=== PATIENT | female | born 1975 | race American Indian/Alaskan Native ===

== ENCOUNTER 2020-09-04 10:00 | Outpatient (CLI) | payer MEDICAID | END 2020-09-04 10:01 | disposition home or self-care (01) | LOC: SLR 10:00 | PROVIDERS: ATTEND Surgery | DX: G47.30 Sleep apnea, unspecified (principal) | CPT/HCPCS: G0399 ==

== ENCOUNTER 2021-01-09 06:48 | Day surgery (SDC) | payer MEDICAID ==
[2021-01-09] MEDS ORDERED: SODIUM CHLORIDE 0.9% 1000 ML 1,000 ML IV SCH (07:00)
--- NOTE | 2021-01-09 07:36 | Anesthesia Consultation ---
Anesthesia Consult and Med Hx Date of service: 01/09/21 - Airway Anesthetic Teeth Evaluation: Good (some missing teeth, fillings) ROM Head & Neck: Adequate Mental/Hyoid Distance: Adequate Mallampati Class: Class III Intubation Access Assessment: Possibly Difficult - Pre-Operative Health Status ASA Pre-Surgery Classification: ASA3 Proposed Anesthetic Plan: MAC - Pulmonary Hx Asthma: Yes (no recent spells) Hx Sleep Apnea: Yes - Gastrointestinal Hx Gastroesophageal Reflux Disease: Yes - Other Systems Hx Cancer: Yes (h/o Hodgkin's lymphoma) Hx Obesity: Yes (BMI 53.9)
--- NOTE | 2021-01-09 07:37 | Anesthesia Day of Surgery ---
Anesthesia Day of Surgery - Day of Surgery Patient Examined: Yes Patient H&P Reviewed: Yes Patient is NPO: Yes
--- NOTE | 2021-01-09 08:25 | Discharge Summary ---
Providers - Providers Date of Admission: 01/09/2021 Date of discharge: 01/09/21 Attending physician: MIREYA MENA MD Primary care physician: KENNETH ROMAN Hospitalization Reason for admission: s/p egd with bx Condition: Good Procedures: egd with bx Hospital course: Pt presented for a pre-op EGD as part of planning for up coming bariatric surgery. Procedure was uneventful and pt recovered well and was discharged to home. Disposition: DC- TO HOME OR SELFCARE Final Discharge Diagnosis (Prints w/discharge instructions): morbid obesity, dyspepsia Core Measure Documentation - Palliative Care Palliative Care/ Comfort Measures: Not Applicable - Core Measures Any of the following diagnoses?: none Exam - Physical Exam Narrative exam: unchanged from pre-op Plan Activity: advance as tolerated Diet: low carbohydrate Follow up with: KENNETH ROMAN MD [Primary Care Provider] - 7 Days
[2021-01-09] MEDS ORDERED: LIDOCAINE MPF (2%) 20 MG/1 ML VIAL 5 ML ONE (09:33)
[2021-01-09] MEDS ORDERED: ONDANSETRON 4 MG/2 ML INJ ONE (09:33)
[2021-01-09] MEDS ORDERED: fentaNYL 100 MCG/2 ML INJ ONE (09:34)
[2021-01-09] MEDS ORDERED: propofoL 200 MG/20 ML VIAL IV ONE (09:34)
--- NOTE | 2021-01-09 09:47 | Operative Report ---
Operative Report Operative Report: DATE: 01/09/2021 SURGERY: Upper endoscopy. SURGEON: Gideon Quiroz M.D. PROCEDURE: EGD with biopsy PRE OP DX: morbid obesity, GERD POST OP DX: morbid obesity, GERD TYPE OF ANESTHESIA: MAC. ESTIMATED BLOOD LOSS: None. COMPLICATIONS: None. SPECIMENS REMOVED: antral biopsy FINDINGS: 1. Small hiatal hernia. 2. antral gastritis INDICATIONS:INDICATION FOR PROCEDURE: Patient is a 45-year-old female with a long history of morbid obesity. She is planned to have a weight loss procedure and is here for preoperative planning EGD. PROCEDURE DETAILS: After consent was reviewed, patient was taken back to the operating room where patient was placed in the left lateral decubitus position and a bite block was placed in the mouth. After a time-out was called, MAC anesthesia was initiated. I then passed the endoscope into her oropharynx, into her esophagus, visualized the entire esophagus, which was all within normal limits. Z-line was noted to about 35cm from incisors. I then visualized the stomach and the first portion of the duodenum and there were no abnormalities I could clearly visualize except for antral gastritis. A cold forceps biopsy of the antrum was taken and will be sent to pathology to evaluate for H.pylori. I then retroflexed the scope in the stomach and visualized the hiatus and I could see a small hiatal hernia. I then desufflated the stomach and removed the endoscope. Patient tolerated procedure well and was transferred to recovery room in good and stable condition.
[2021-01-09 10:10] VITALS: BP 100/72
--- NOTE | 2021-01-09 17:18 | Post Anesthesia Evaluation ---
- Post Anesthesia Evaluation Patient Participated: Yes Airway Patent: Yes Stable Respiratory Function: Yes Nausea/Vomiting: No Temp > 96.8F: Yes Pain Manageable: Yes Adequeate Hydration: Yes Anesthesia Complications: No Block Receding Appropriately: Not Applicable Patient on Ventilator: No
== END 2021-01-09 06:49 | disposition home or self-care (01) ==
LOC: GIO 06:48
PROVIDERS: ATTEND Surgery
DX: K21.9 Gastro-esophageal reflux disease without esophagitis (principal); E66.01 Morbid (severe) obesity due to excess calories; K29.70 Gastritis, unspecified, without bleeding; J45.909 Unspecified asthma, uncomplicated; K44.9 Diaphragmatic hernia without obstruction or gangrene; G47.30 Sleep apnea, unspecified; Z68.43 Body mass index [BMI] 50.0-59.9, adult; Z98.890 Other specified postprocedural states
CPT/HCPCS: 43239; 88305; 88342; J2405; J2704; J3010; J7030

== ENCOUNTER 2021-07-02 06:03 | Day surgery (SDC) | payer MEDICAID ==
[2021-06-27 11:01] LABS: Hematocrit 35.6 % (30.3-42.9); Mean Corpuscular HGB Conc 31 % (30-34); Mean Corpuscular Volume 78 fl (79-97); Platelet Count 423 K/mm3 (140-440); Red Cell Distribution Width 16.5 % (13.2-15.2)
[2021-06-27 11:21] LABS: Alanine Aminotransferase 9 units/L (7-56); Albumin 3.9 g/dL (3.9-5); Blood Urea Nitrogen 15 mg/dL (7-17); Calcium 9.6 mg/dL (8.4-10.2); Hemolysis Index 4
[2021-06-27 11:24] LABS: BUN/Creatinine Ratio 30
[2021-06-28 11:53] VITALS: BP 115/63
[~2021-07-02 06:03] MED LIST: ENOXAPARIN 40 MG/0.4 ML INJ SUB-Q NR; [UNRECOGNIZED DRUG - OTHER] IV SCH
[2021-07-02] MEDS ORDERED: SCOPOLAMINE TRANSDERMAL PATCH 72 HR TD SCH (10:00)
== END 2021-07-02 06:04 | disposition home or self-care (01) ==
LOC: OR 06:03
PROVIDERS: ATTEND Surgery
DX: E66.01 Morbid (severe) obesity due to excess calories (principal); Z53.8 Procedure and treatment not carried out for other reasons; J45.909 Unspecified asthma, uncomplicated; K21.9 Gastro-esophageal reflux disease without esophagitis; Z79.899 Other long term (current) drug therapy; Z98.890 Other specified postprocedural states; Z20.822 Contact with and (suspected) exposure to COVID-19
CPT/HCPCS: 36415; 80053; 84703; 85027; U0003

== ENCOUNTER 2021-08-06 05:56 | Inpatient (IN) | payer MEDICAID ==
--- NOTE | 2021-08-03 15:32 | Anesthesia Consultation ---
Anesthesia Consult and Med Hx Date of service: 08/06/21 - Airway Anesthetic Teeth Evaluation: Good ROM Head & Neck: Adequate Mental/Hyoid Distance: Adequate Mallampati Class: Class III Intubation Access Assessment: Probably Good - Pre-Operative Health Status ASA Pre-Surgery Classification: ASA3 Proposed Anesthetic Plan: General - Pulmonary Hx Smoking: No Hx Asthma: Yes (Last treated 2 years ago) Hx Sleep Apnea: Yes (Had sleep study, did not qualify for CPAP machine) - Cardiovascular System Hx Hypertension: No - Central Nervous System Hx Psychiatric Problems: No - Gastrointestinal Hx Gastroesophageal Reflux Disease: Yes - Endocrine Hx Non-Insulin Dependent Diabetes: Yes (Borderline; improved with weight loss) - Other Systems Hx Alcohol Use: Yes (Occas) Hx Cancer: Yes (Hodgkins lymphoma 1994) Hx Obesity: Yes (BMI 55.2)
[2021-08-06] MEDS ORDERED: ENOXAPARIN 40 MG/0.4 ML INJ SUB-Q NR (06:00)
[2021-08-06] MEDS ORDERED: MIDAZOLAM 2 MG/2 ML INJ IV NR (06:00)
[2021-08-06] MEDS ORDERED: ACETAMINOPHEN IV 1,000 MG/100 ML BOTTLE IV NR (06:00)
[2021-08-06] MEDS ORDERED: GABAPENTIN 500 MG/10 ML ORAL LIQD PO NR (06:00)
[2021-08-06] MEDS ORDERED: LACTATED RINGERS 1,000 ML IV SCH (06:00)
[2021-08-06] MEDS ORDERED: metroNIDAZOLE/NS 500 MG/100 ML 500 MG/100 ML BAG IV NR (06:00)
[2021-08-06] MEDS ORDERED: methOCARBAMOL 1,000 MG in SODIUM CHLORIDE 0.9% 250ML 250 ML IV ONE (06:00)
[2021-08-06] MEDS ORDERED: SCOPOLAMINE TRANSDERMAL PATCH 72 HR TD NR (06:00)
[2021-08-06 07:00] LABS: Hematocrit 32.9 % (30.3-42.9); Hemoglobin 10.2 gm/dl (10.1-14.3); Mean Corpuscular HGB Conc 31 % (30-34); Mean Corpuscular Volume 78 fl (79-97); Platelet Count 376 K/mm3 (140-440); Red Blood Count 4.23 M/mm3 (3.65-5.03); Red Cell Distribution Width 16.3 % (13.2-15.2)
[2021-08-06] MEDS ORDERED: SUGAMMADEX SODIUM 200 MG/2 ML VIAL IV ONE (07:03)
[2021-08-06] MEDS ORDERED: KETAMINE/STERILE WATER 50 MG/ML SYRINGE ONE (07:15)
[2021-08-06 07:16] LABS: Alanine Aminotransferase 7 units/L (7-56); Albumin 3.5 g/dL (3.9-5); Blood Urea Nitrogen 9 mg/dL (7-17); Calcium 9.5 mg/dL (8.4-10.2); Hemolysis Index 1
[2021-08-06] MEDS ORDERED: HYDROmorphone 1 MG/1 ML INJ IV PRN ×2 (07:29→12:00)
[2021-08-06] MEDS ORDERED: ONDANSETRON 4 MG/2 ML INJ IV PRN ×2 (07:29→12:00)
--- NOTE | 2021-08-06 07:29 | Anesthesia Day of Surgery ---
Anesthesia Day of Surgery - Day of Surgery Patient Examined: Yes Patient H&P Reviewed: Yes Patient is NPO: Yes
[2021-08-06] MEDS ORDERED: fentaNYL 100 MCG/2 ML INJ ONE (07:36)
[2021-08-06] MEDS ORDERED: BUPIVACAINE/PF (0.25%) 2.5 MG/ML 30 ML VIAL INFILTRATI ONE ×2 (07:37→08:56)
[2021-08-06] MEDS ORDERED: LIDOCAINE 1%/EPINEPHRINE 1:100,000 VIAL (20 ML) INFILTRATI ONE ×2 (07:38→08:57)
[2021-08-06 07:45] LABS: BUN/Creatinine Ratio 18
[2021-08-06] MEDS ORDERED: MAGNESIUM SULFATE 4 GM/100 ML BAG IV ONE (07:51)
[2021-08-06] MEDS ORDERED: SODIUM CHLORIDE 0.9% IRRIG SOLN 2000 ML IR ONE (08:57)
[2021-08-06] MEDS ORDERED: SODIUM CHLORIDE 0.9% IRR 1,500 ML BOTTLE IR ONE (08:58)
[2021-08-06] MEDS ORDERED: ROCURONIUM 50 MG/5 ML INJ IV ONE (09:40)
[2021-08-06] MEDS ORDERED: dexAMETHasone 20 MG/5 ML VIAL ONE (09:40)
[2021-08-06] MEDS ORDERED: ONDANSETRON 4 MG/2 ML INJ ONE (09:40)
[2021-08-06] MEDS ORDERED: LIDOCAINE MPF (2%) 20 MG/1 ML VIAL 5 ML ONE (09:41)
[2021-08-06] MEDS ORDERED: propofoL 200 MG/20 ML VIAL IV ONE ×3 (10:12→10:47)
--- OUTSIDE RECORDS SUMMARY | 2021-08-06 11:04 | External Medical Summary ---
:1975 Author Organization [facility], [facility] Address [address] [place] [address] Care Team Providers Name Role Phone Richie Unavailable [phone] PROBLEMS Type Condition ICD9-CM NBM13-AP Onset Condition W/U Status Risk SNOM ED Notes Code Code Dates Status Code Problem Body mass Z68.43 Active confirmed 873791152 index [BMI] 50.0-59.9, adult Problem Morbid E66.01 Active confirmed 953817045 (severe) obesity due to excess calories Problem Pain in M25.559 Active confirmed 733362591 unspecified hip Problem Dietary Z71.3 Active confirmed 813765651 counseling and surveillance Problem Gastro-esopha K21.9 Active confirmed 084940 005 geal reflux disease without esophagitis Problem Unspecified J45.909 Active confirmed 0084061 0 asthma, uncomplicated Problem Sleep G47.9 Active confirmed 71792477 disorder, unspecified ALLERGIES No Known Allergies ENCOUNTERS from 1975 to 2021-08-06 Encounter Location Date Provider Diagnosis [address] [place], [facility] [place] [id number] IMMUNIZATIONS No Information SOCIAL HISTORY Sex Assigned At : Social History Observation Description Sex Assigned At Unknown REASON FOR REFERRAL from 1975 to 2021-08-06 Reason Gastric Bypass Diagnosis 1 Gastro-esophageal reflux dis ease without esophagitis (K21.9) Diagnosis 2 Morbid (severe) obesity due to excess calories (E66.01) Diagnosis 3 Sleep disorder, unspecified (G47.9) Diagnosis 4 Unspecified asthma, uncompli cated (J45.909) Diagnosis 5 Pain in unspecified hip (M25 .559) Referral Organization [facility] Referring Provider First Name Gideon Referring Provider Last Name Richie Referring Provider Specialty Surgery Referred Provider [facility], - Referral Priority Routine VITAL SIGNS No information MEDICATIONS Medication SIG (Take, Route, Notes Start Date End Date Status Frequency, Duration) ibuprofen for tooth Active infection Pantoprazole Sodium daily Activ e Reglan prn Active Multivitamin - 1 tablet Orally Activ e Once a day for 30 day(s) Ondansetron 4 MG 1 tablet on the Jun, A ctive tongue and allow to dissolve Orally every four hours for 30 day(s) Amoxicillin for tooth Not-Taking infection NexIUM 40 MG 1 capsule Orally Jun, Acti ve Once a day for 30 day(s) Probiotic - as directed Active Orally PROCEDURES No Information RESULTS No Results REASON FOR VISIT Gastric Bypass MEDICAL (GENERAL) HISTORY Type Description Date Medical History GERD Medical History asthma Medical History hx of hodgkins lymphoma Medical History right hand carpal tunnel Surgical History lymphnode biopsy 1994 Surgical History uterine ablation Hospitalization History as above Goals Section No Information Health Concerns No Information MEDICAL EQUIPMENT No Information MENTAL STATUS No Information FUNCTIONAL STATUS No Information ASSESSMENTS No Information PLAN OF TREATMENT Referrals Referral Date Details Gastric Bypass Insurance Providers Payer Payer Payer Insured Name Patient Coverage Coverage Subscribe r Group Name Address Phone Relationship Start End Date Number Nu mber to Insured Date [employer] [phone] Rogel [id number] [facility] [phone] [address] [facility] [id number]
[2021-08-06] MEDS ORDERED: KETOROLAC 30 MG/1 ML INJ ONE (11:20)
--- NOTE | 2021-08-06 11:44 | Operative Report ---
Operative Report Operative Report: DATE OF PROCEDURE: 08/06/2021 SURGEON: Gideon Quiroz M.D. [employer]: Nela Thompson CSA MD PREOPERATIVE DIAGNOSIS: Morbid obesity. POSTOPERATIVE DIAGNOSES: Morbid obesity PROCEDURES PERFORMED: 1. Laparoscopic gastric bypass. 2. EGD. 3. TAP block ANESTHESIA: General endotracheal tube intubation. SPECIMENS: None. ESTIMATED BLOOD LOSS: ~40ml FINDINGS: Normal anatomy. COMPLICATIONS: None. INDICATION: Ms. Villa is a 45-year-old female with history of morbid obesity who is here for bariatric surgery for weight loss. She signed informed consent and expressed understanding of risks and benefits. DESCRIPTION OF PROCEDURE: Patient was brought to the OR suite, laid in supine position. Bilateral lower extremity SCDs were placed. General anesthesia was induced via successful endotracheal tube intubation. Patient's abdomen was prepped and draped in sterile fashion. A veress needle was used to insuflate the abdomen to a pressure of 15 mmHg in the left subcostal region using AirSeal. Using Optiview technique, a 5-mm trocar was placed into the abdominal cavity under direct vision just superior and to the left of the umbilicus. There was noted to be no gross injury to any intraabdominal structures. 12 mm in the right mid abdomen mid clavicular line and three 5-mm trocars in the right upper quadrant, epigastric areas were placed under direct visualization. An additional [address] in left upper quadrant due to difficulty seeing optimally at the hiatus due to her very thick abdominal wall. At this time, the ligament of Treitz identified and followed down approximately 75 cm and the jejunum was transected. The distal segment of jejunum was then traced for approximately 100 cm and a stable [id number] jejunojejunostomy was performed. The common enterotomy was closed with 2 firings of the endoscopic stapler. The mesenteric defect was closed with running Surgidac suture. This anastomosis was found to be patent without kink, obstruction or bleeding. At this time, the patient was placed in steep reverse Trendelenburg position. A liver retractor was placed through the epigastric port to elevate the left lateral lobe of the liver. A small gastric pouch was formed with serial firings of the blue load on a laparoscopic stapler. The Soto limb was then brought in an antegastric antecolic fashion and secured with 2 stay sutures to the gastric pouch. After this, the enterotomies were made with Harmonic scalpel, and a [id number]-lj-jkep stapled gastrojejunostomy was performed with a mechanical stapler. After this, a 2-layer running closure using absorbable V-lock suture were done, the first being mucosal approximation prior to completion of the first layer. Then I passed and an EGD scope beyond the anastomosis to act as a stent. The first layer was completed, the second was then performed. After this, the EGD was retracted slightly. A bowel clamp was placed in a proximal Soto limb. The anastomosis was submerged under saline. Via intraluminal EGD insufflation, there was noted be no bubbles in the saline indicating an airtight anastomosis. There was noted to be no obstruction or bleeding intraluminally in the pouch or the anastomosis. At this time, the scope was removed. The saline was aspirated. Vistaseal was placed over the anastomosis. A 19 Portuguese round drain was placed beneath the anastomosis in order to monitor the area since there was more oozing than typical. A TAP block was performed using a total of 60 mL 0.25% Marcaine along bilateral mid axillary lines starting at the subcostal margin at the level of the umbilicus. The 12mm trocar site was closed using POD and a Mynor Sophy device for fear that after surgery it become incarcerated. All trocars were removed under direct visualization and the abdomen was then desufflated. The skin incisions were closed with 4-0 Monocryl followed by Dermabond dressings. Patient was awoken and taken to recovery in stable condition. All counts were correct.
[2021-08-06] MEDS: HYDROmorphone 1 MG/1 ML INJ IV PRN ×5 (11:50→19:45)
[2021-08-06] MEDS ORDERED: PANTOPRAZOLE 40 MG INJ IV SCH (12:00)
[2021-08-06] MEDS ORDERED: METOCLOPRAMIDE 10 MG/2 ML INJ IV PRN (12:00)
[2021-08-06] MEDS ORDERED: hydrALAZINE 20 MG/1 ML INJ IV PRN (12:00)
[2021-08-06] MEDS ORDERED: ACETAMINOPHEN IV 1,000 MG/100 ML BOTTLE IV SCH (13:30)
[2021-08-06] MEDS ORDERED: metroNIDAZOLE/NS 500 MG/100 ML 500 MG/100 ML BAG IV SCH (15:00)
[2021-08-06] MEDS ORDERED: ceFAZolin/NS 1 GM/50 ML 1 GM/50 ML BAG IV SCH (15:30)
[2021-08-06] MEDS ORDERED: ceFAZolin/Water 2 GM/20 ML 0 GM/0 ML SYRINGE IV ONE (16:26)
[2021-08-06] MEDS: KETOROLAC 30 MG/1 ML INJ IV SCH ×2 (16:48→23:04)
[2021-08-06] MEDS: PANTOPRAZOLE 40 MG INJ IV SCH (16:50)
[2021-08-06] MEDS: metroNIDAZOLE/NS 500 MG/100 ML 500 MG/100 ML BAG IV SCH (16:52)
[2021-08-06] MEDS: ACETAMINOPHEN IV 1,000 MG/100 ML BOTTLE IV SCH (16:53)
[2021-08-06] MEDS ORDERED: HYDROmorphone 1 MG/1 ML INJ IV ONE (19:45)
[2021-08-06] MEDS: MORPHINE 2 MG/1 ML INJ IV PRN (21:12)
[2021-08-06] MEDS: LACTATED RINGERS 1,000 ML IV SCH (21:20)
[2021-08-06] MEDS: SIMETHICONE 80 MG CHEW TAB PO PRN (23:13)
[2021-08-07] MEDS: KETOROLAC 30 MG/1 ML INJ IV SCH ×5 (00:19→23:42)
[2021-08-07] MEDS: metroNIDAZOLE/NS 500 MG/100 ML 500 MG/100 ML BAG IV SCH ×2 (01:07→10:00)
[2021-08-07] MEDS ORDERED: ceFAZolin/NS 1 GM/50 ML 1 GM/50 ML BAG IV SCH (01:45)
[2021-08-07] MEDS: MORPHINE 2 MG/1 ML INJ IV PRN (02:42)
[2021-08-07] MEDS: ACETAMINOPHEN IV 1,000 MG/100 ML BOTTLE IV SCH ×3 (03:42→10:52)
[2021-08-07] MEDS: PANTOPRAZOLE 40 MG INJ IV SCH (10:28)
[2021-08-07] MEDS: ENOXAPARIN 40 MG/0.4 ML INJ SUB-Q SCH (10:28)
[2021-08-07 10:59] LABS: Hematocrit 31.8 % (30.3-42.9); Hemoglobin 9.7 gm/dl (10.1-14.3); Mean Corpuscular HGB Conc 31 % (30-34); Mean Corpuscular Volume 79 fl (79-97); Red Blood Count 4.04 M/mm3 (3.65-5.03)
[2021-08-07 11:00] LABS: Platelet Count 419 K/mm3 (140-440)
[2021-08-07 11:34] LABS: Alanine Aminotransferase 9 units/L (7-56); Blood Urea Nitrogen 8 mg/dL (7-17); Hemolysis Index 87
[2021-08-07 11:38] LABS: BUN/Creatinine Ratio 16
[2021-08-07 12:04] LABS: Basophils % (Manual) 0 % (0.0-1.8); Eosinophils % (Manual) 0 % (0.0-4.3); Total Cells Counted 100
[2021-08-07 12:05] LABS: Hypochromasia 1+; Platelet Estimate Consistent w Auto
--- NOTE | 2021-08-07 14:15 | Progress Note ---
Assessment and Plan Postop day #1 status post laparoscopic gastric bypass morbid obesity. Patient is afebrile and stable with some leukocytosis. Patient is tolerating liquids and ambulating reasonably well. Due to the difficulty of her surgery and elevated white blood cell count would like to observe patient overnight. Patient clinically doing well can remove SALENA drain before discharge and discharge home tomorrow. Subjective Date of service: 08/07/21 Narrative: No acute events overnight. Objective Vital Signs - 12hr 08/07/21 08/07/21 08/07/21 03:08 07:34 10:00 Temperature 97.4 F L 98.0 F Pulse Rate 62 78 Respiratory 18 20 18 Rate Blood Pressure 93/60 113/66 Blood Pressure [Right] O2 Sat by Pulse 95 96 100 Oximetry 08/07/21 08/07/21 12:30 12:42 Temperature 97.9 F Pulse Rate 62 Respiratory 19 Rate Blood Pressure Blood Pressure 115/60 [Right] O2 Sat by Pulse 97 Oximetry - General physical appearance well developed, no distress, no pain, obese - Respiratory normal expansion, normal respiratory effort - Abdomen soft, other (Appropriately tender to palpation, incisions clean dry and intact, SALENA drain serosanguineous) - Labs 08/07/21 09:55 08/07/21 09:55 Diabetes panel 08/07/21 Range/Units 09:55 Sodium 136 L (137-145) mmol/L Potassium 4.7 (3.6-5.0) mmol/L Chloride 103.5 (98-107) mmol/L Carbon Dioxide 19 L (22-30) mmol/L BUN 8 (7-17) mg/dL Creatinine 0.5 L (0.6-1.2) mg/dL Glucose 108 H (65-100) mg/dL Calcium 9.0 (8.4-10.2) mg/dL AST 17 (5-40) units/L ALT 9 (7-56) units/L Alkaline Phosphatase 93 (35-129) units/L Total Protein 6.9 (6.3-8.2) g/dL Albumin 3.0 L (3.9-5) g/dL Calcium panel 08/07/21 Range/Units 09:55 Calcium 9.0 (8.4-10.2) mg/dL Albumin 3.0 L (3.9-5) g/dL Pituitary panel 08/07/21 Range/Units 09:55 Sodium 136 L (137-145) mmol/L Potassium 4.7 (3.6-5.0) mmol/L Chloride 103.5 (98-107) mmol/L Carbon Dioxide 19 L (22-30) mmol/L BUN 8 (7-17) mg/dL Creatinine 0.5 L (0.6-1.2) mg/dL Glucose 108 H (65-100) mg/dL Calcium 9.0 (8.4-10.2) mg/dL Adrenal panel 08/07/21 Range/Units 09:55 Sodium 136 L (137-145) mmol/L Potassium 4.7 (3.6-5.0) mmol/L Chloride 103.5 (98-107) mmol/L Carbon Dioxide 19 L (22-30) mmol/L BUN 8 (7-17) mg/dL Creatinine 0.5 L (0.6-1.2) mg/dL Glucose 108 H (65-100) mg/dL Calcium 9.0 (8.4-10.2) mg/dL Total Bilirubin 0.30 (0.1-1.2) mg/dL AST 17 (5-40) units/L ALT 9 (7-56) units/L Alkaline Phosphatase 93 (35-129) units/L Total Protein 6.9 (6.3-8.2) g/dL Albumin 3.0 L (3.9-5) g/dL
[2021-08-07] MEDS: LACTATED RINGERS 1,000 ML IV SCH ×2 (15:33→21:44)
[2021-08-07] MEDS: HYDROcodone/Acetaminophen 7.5-325MG-15ML ORAL LIQD PO PRN (23:30)
[2021-08-07] MEDS: SIMETHICONE 80 MG CHEW TAB PO PRN (23:30)
[2021-08-08] MEDS: LACTATED RINGERS 1,000 ML IV SCH (03:59)
[2021-08-08] MEDS: HYDROcodone/Acetaminophen 7.5-325MG-15ML ORAL LIQD PO PRN (05:46)
[2021-08-08 06:16] LABS: Basophils % (Auto) 0.3 % (0.0-1.8); Eosinophils % (Auto) 0.1 % (0.0-4.3); Hematocrit 27.8 % (30.3-42.9); Hemoglobin 8.8 gm/dl (10.1-14.3); Lymphocytes # (Auto) 2.4 K/mm3 (1.2-5.4); Lymphocytes % (Auto) 32.2 % (13.4-35.0); Mean Corpuscular HGB Conc 32 % (30-34); Mean Corpuscular Volume 78 fl (79-97); Monocytes # (Auto) 0.9 K/mm3 (0.0-0.8); Monocytes % (Auto) 11.6 % (0.0-7.3); Platelet Count 335 K/mm3 (140-440); Red Blood Count 3.59 M/mm3 (3.65-5.03); Red Cell Distribution Width 16.8 % (13.2-15.2)
[2021-08-08 06:32] LABS: Alanine Aminotransferase 7 units/L (7-56); Blood Urea Nitrogen 11 mg/dL (7-17); Calcium 8.8 mg/dL (8.4-10.2); Hemolysis Index 0
[2021-08-08 06:35] LABS: BUN/Creatinine Ratio 18
[2021-08-08] MEDS: KETOROLAC 30 MG/1 ML INJ IV SCH (07:44)
[2021-08-08] MEDS: ENOXAPARIN 40 MG/0.4 ML INJ SUB-Q SCH (09:20)
[2021-08-08] MEDS: PANTOPRAZOLE 40 MG INJ IV SCH (09:20)
[2021-08-08 09:21] VITALS: BP 122/67
--- NOTE | 2021-08-08 09:58 | Discharge Summary ---
Providers - Providers Date of Admission: 08/06/21 05:56 Date of discharge: 08/08/21 Attending physician: MIREYA MENA MD 08/06/21 11:23 Physical Therapy Evaluation and Treat [CONS] Routine Comment: Reason For Exam: s/p bariatric surgery Primary care physician: KENNETH ROMAN Hospitalization Reason for admission: s/p lap gastric bypass Condition: Good Procedures: lap gastric bypass Hospital course: Patient had an uncomplicated course status post laparoscopic gastric bypass for the treatment of morbid obesity. Patient was tolerating liquids and ambulating without difficulty. She remained afebrile and stable with laboratory values and vital signs have been within acceptable limits. Patient was discharged on postoperative day #2 showing no gross clinical signs of leak or active bleeding. She is to follow-up in the office in 2 weeks. Disposition: HOME / SELF CARE / HOMELESS Final Discharge Diagnosis (Prints w/discharge instructions): Morbid obesity Core Measure Documentation - Palliative Care Palliative Care/ Comfort Measures: Not Applicable - Core Measures Any of the following diagnoses?: none Exam - Constitutional Vitals: Temp Pulse Resp BP Pulse Ox 96.6 F L 68 18 122/67 99 08/08/21 09:10 08/08/21 09:10 08/08/21 09:10 08/08/21 09:10 08/08/21 09:10 General appearance: Present: no acute distress, obese - EENT Eyes: Absent: scleral icterus - Respiratory Respiratory effort: normal - Cardiovascular Heart Sounds: Present: S1 & S2 - Extremities Extremities: no ischemia - Abdominal General gastrointestinal: Present: other (SerousSoft, appropriately tender, incisions clean dry and intact, SALENA drain sanguinous prior to removal.) Plan Activity: advance as tolerated Diet: clear liquids Wound: open to air, keep clean and dry Additional Instructions: Patient can shower, he is to change SALENA dressing site daily until dry Follow up with: KENNETH ROMAN MD [Primary Care Provider] - 7 Days
== END 2021-08-08 12:05 | disposition home or self-care (01) | DRG 621 ==
LOC: 3A 05:56 → 4A 13:58
PROVIDERS: ADMIT Surgery; ATTEND Surgery
PROC: 0D164ZA Bypass Stomach to Jejunum, Percutaneous Endoscopic Approach (ICD-10-PCS; principal; 2021-08-06)
PROC: 0DJ08ZZ Inspection of Upper Intestinal Tract, Via Natural or Artificial Opening Endoscopic (ICD-10-PCS; 2021-08-06)
PROC: 3E0T3BZ Introduction of Anesthetic Agent into Peripheral Nerves and Plexi, Percutaneous Approach (ICD-10-PCS; 2021-08-06)
DX: E66.01 Morbid (severe) obesity due to excess calories (principal); Z68.44 Body mass index [BMI] 60.0-69.9, adult; Z20.822 Contact with and (suspected) exposure to COVID-19; J45.909 Unspecified asthma, uncomplicated; K21.9 Gastro-esophageal reflux disease without esophagitis
CPT/HCPCS: 36415; 80053; 81025; 85007; 85025; 85027; G0378; J3490; J7120; J7121; J7517; C9113; J0131; J0690; J1100; J1170; J1650; J1885; J2250; J2270; J2405; J2704; J2765; J3010; J3475; U0003